=== PATIENT | female | born 1980 | race African-American/Black ===

== ENCOUNTER 2016-10-12 21:57 | Inpatient (IN) | payer OTHER ==
[~2016-10-12] VITALS: Ht 160 cm; Wt 62.6 kg
[2016-10-12 22:17] VITALS: BP 119/81
--- NOTE | 2016-10-13 01:32 | NUR ---
To bed 7
[2016-10-13] MEDS ORDERED: KETOROLAC 30 MG/ML VIAL IM ONE (01:35)
--- NOTE | 2016-10-13 01:43 | NUR ---
PATIENT PRESENTS TO ED WITH VAG BLEEDING , DIZZINESS, FOR 3 DAYS. SYNCOPE IN THE MORNING, LMP 5. 15. PT DENIES N/V/D; SKIN IS PINK/WARM/DRY; AAOX4 WITH EVEN AND STEADY GAIT; LUNGS CLEAR BL; HR EVEN AND REGULAR; PT DENIES ANY FEVER, CP, SOB, OR COUGH AT THIS TIME; PATIENT STATES PAIN OF 5/10 AT THIS TIME; VSS; PATIENT POSITIONED FOR COMFORT; HOB ELEVATED; BEDRAILS UP X2; BED DOWN. ER MD MADE AWARE OF PT STATUS.
--- NOTE | 2016-10-13 01:55 | NUR ---
PT REFUSED IM MEDICATION, DOES NOT WANT "SHOT" OR "IV", WILL INFORM DR LAO.
--- NOTE | 2016-10-13 02:00 | NUR ---
PT TO US VIA WC IN STABLE CONDITION
--- NOTE | 2016-10-13 02:05 | NUR ---
DR LAO MADE AWARE PT REFUSED IM MEDICATION
[2016-10-13 02:06] LABS: HEMOGLOBIN 7.5 g/dL (12.0-16.0)
[2016-10-13 02:08] LABS: HEMATOCRIT 24.3 % (36-48); MEAN CORPUSCULAR HEMOGLOBIN 23 pg (27-31); MEAN CORPUSCULAR HGB CONC 31 g/dL (33-37); MEAN CORPUSCULAR VOLUME 73 fL (80-94); PLATELET COUNT (AUTO) 195 K/uL (140-450); RED BLOOD CELL COUNT(AUTO) 3.32 MIL/uL (4.20-5.40)
[2016-10-13 02:12] LABS: CALCIUM 8.2 mg/dL (8.5-10.1); CARBON DIOXIDE 26.9 mmol/L (21-32); CREATININE 0.6 mg/dL (0.6-1.3); POTASSIUM 3.9 mmol/L (3.5-5.1)
[2016-10-13 02:15] LABS: ANISOCYTOSIS 2+; EOSINOPHILS % (MANUAL) 5 % (0-4); HYPOCHROMASIA 2+; LYMPHOCYTES % (MANUAL) 33 % (20-46); MONOCYTES % (MANUAL) 11 % (5-12); NEUTROPHILS % (MANUAL) 51 (43-65); POIKILOCYTOSIS 1+
[2016-10-13 02:27] LABS: FREE T4 (FREE THYROXINE) 0.92 ng/dL (0.76-1.46); INR 1.1 (0.8-1.2); PROTHROMBIN TIME 10.4 secs (10.8-13.4); THYROID STIMULATING HORMONE 1.95 uIU/mL (0.34-3.76)
[2016-10-13 02:31] LABS: PARTIAL THROMBOPLASTIN TIME 19.4 secs (22-35.6)
--- NOTE | 2016-10-13 03:08 | NUR ---
FEMALE CHAPERONED FOR DR. LAO DURING PELVIC EXAM
[2016-10-13] MEDS ORDERED: ONDANSETRON 4 MG/2 ML VIAL IVP PRN (04:45)
[2016-10-13] MEDS ORDERED: MORPHINE SULFATE 2 MG/ML SYR IVP PRN (04:45)
[2016-10-13] MEDS ORDERED: ACETAMINOPHEN 325 MG TAB PO PRN (04:45)
--- NOTE | 2016-10-13 05:20 | NUR ---
Patient will be admitted to care of DR RUIZ. Admited to MED/SURG. Will go to room 120B. Belongings list completed. Report to MIKHAIL CALLE.
--- NOTE | 2016-10-13 05:30 | NUR ---
Admitted from E.. with chief complaint of VAGINAL BLEEDING. A 36 y/o. Female, Appropriate. ALERT AWAKE ORIENTED X4. INITIAL ASSESSMENT DONE. NO S/S OF RESPIRATORY DISTRESS OR SOB NOTED. NO C/O PAIN OR ANY DISCOMFORT AT THIS TIME. SKIN IS INTACT CLEAN DRY AND WARM TO TOUCH. oriented to call light, bed, phone,television, bathroom, smoking policy, visiting hours, procedures, ID bracelet on. Belongings list checked. CALL LIGHT WITHIN REACH. WILL CONTINUE TO MONITOR.
--- NOTE | 2016-10-13 05:35 | NUR ---
PT REFUSED TO HAVE BLOOD TRANSFUSION DESPITE EXPLAINING THE RISKS AND BENEFITS OF IT. 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 SHE SAID THAT SHE JUST SCARED OF GETTING BLOOD FROM ANOTHER PERSON. CALLED DR. NAVARRO AND NOTIFIED AND SAID; "THAT'S FINE. JUST DOCUMENT THAT PT IS REFUSING EVEN THOUGH YOU EXPLAIN TO HER THE RISKS AND BENEFITS OF IT". WILL CONTINUE TO MONITOR.
--- NOTE | 2016-10-13 07:25 | NUR ---
PT HAS NO S/S OF ANY DISCOMFORT. PLAN OF CARE ENDORSED TO IMELDA RN AT BEDSIDE FOR CONTINUITY OF CARE.
--- NOTE | 2016-10-13 07:26 | NUR ---
PT ALERT AND ORIENTED X4. BREATHING EVENLY AND UNLABORED, NO SIGNS OF ACUTE DISTRESS. SKIN IS WARM AND DRY. NO SIGNS OF ANY BOWEL/BLADDER DISCOMFORT. NOM C/O ANY PAIN OR DISCOMFORT AT THIS TIME, ALL NEEDS ATTENDED, SAFETY PRECAUTIONS MAINTAINED. CALL LIGHT WITHIN REACH.
[2016-10-13 08:00] VITALS: BP 115/82
[2016-10-13 09:14] LABS: HEMATOCRIT 23.3 % (36-48); HEMOGLOBIN 7.2 g/dL (12.0-16.0); MEAN CORPUSCULAR HEMOGLOBIN 23 pg (27-31); MEAN CORPUSCULAR HGB CONC 31 g/dL (33-37); MEAN CORPUSCULAR VOLUME 73 fL (80-94); PLATELET COUNT (AUTO) 178 K/uL (140-450); RED BLOOD CELL COUNT(AUTO) 3.19 MIL/uL (4.20-5.40); RED CELL DISTRIBUTION WIDTH 19.9 % (11.6-13.7)
[2016-10-13 09:30] LABS: WHITE BLOOD COUNT (AUTO) 6.8 K/uL (4.8-10.8)
[2016-10-13 09:31] LABS: ANISOCYTOSIS 1+; EOSINOPHILS % (MANUAL) 7 % (0-4); HYPOCHROMASIA 1+; LYMPHOCYTES % (MANUAL) 40 % (20-46); MONOCYTES % (MANUAL) 9 % (5-12); NEUTROPHILS % (MANUAL) 44 (43-65); OVALOCYTES 1+; POIKILOCYTOSIS 1+; TEAR DROP CELLS 1+
--- NOTE | 2016-10-13 09:53 | NUR ---
PATIENT HAS BEEN SCREENED AND CATEGORIZED LOW NUTRITION RISK. PATIENT WILL BE SEEN WITHIN 7 DAYS OF ADMISSION. 10/19/[address]
--- NOTE | 2016-10-13 10:29 | NUR ---
WAS SEEN BY DR. RUIZ. RECEIVED NEW MED ORDER, AND MAY D/C HOME. NOTED AND CARRIED OUT.
[2016-10-13] MEDS ORDERED: DOCU-264 PO (10:30)
[2016-10-13] MEDS ORDERED: ASCO-166 PO (10:30)
[2016-10-13] MEDS ORDERED: FERR-193 PO (10:30)
[2016-10-13] MEDS ORDERED: IRON DEXTRAN IV SCH (10:30)
[2016-10-13] MEDS ORDERED: NACL 0.9% 1,000 ML IV SCH (10:30)
[2016-10-13] MEDS ORDERED: NACL 0.9% IV SCH (10:30)
[2016-10-13] MEDS ORDERED: HYDROcodone/APAP 5/325 MG 1 TAB TAB PO PRN (10:35)
[2016-10-13] MEDS ORDERED: FERRIC GLUCONATE 125 MG in NACL 0.9% 100 ML IV SCH (11:30)
--- NOTE | 2016-10-13 14:00 | NUR ---
PT ALERT AND ORIENTED, NO SIGNS OF ACUTE DISTRESS. MAY D/C HOME ORDERED. EDUCATED TO FOLLOW UP WITH PCP IN 1 WEEK. DISCHARGE PRESCRIPTIONS REVIEWED, INDICATIONS AND SIDE EFFECTS. PT VERBALIZED UNDERSTANDING. WRIST BANDS AND IV LINE REMOVED. PERSONAL BELONGINGS WITH PT UPON DISCHARGE. PT TO GO HOME WITH PUBLIC TRANSPORT.
--- NOTE | 2016-10-13 15:52 | NUR ---
STEPHAN NOTE SPOKE WITH [facility] PH# [phone] TO GIVE HER A VERBAL CLINICAL UPDATE. FAXED H&P AND DISCHARGE SUMMARY TO [facility] FAX# [phone]
== END 2016-10-13 14:00 | disposition home or self-care (01) | DRG 532 ==
LOC: MED 21:57 → MTU 10-13 04:45
PROVIDERS: ADMIT Hospitalist; ATTEND Hospitalist
DX: D25.0 Submucous leiomyoma of uterus (principal); E83.51 Hypocalcemia; D50.0 Iron deficiency anemia secondary to blood loss (chronic)
CPT/HCPCS: 36415; 76830; 80048; 84439; 84443; 85025; 85610; 85730; 86886; 86900; 86901; 86920; 87081; 99285; J1885; J2916; J7030